=== PATIENT | female | born 1975 | race Caucasian/White ===

== ENCOUNTER 2021-08-12 16:23 | Observation (INO) ==
[2021-08-12 18:06] LABS: Basophils # (auto) 0.07 K/uL (0-0.2); Basophils % (auto) 0.7 %; Eosinophils # (auto) 0.63 K/uL (0-0.5); Eosinophils % (auto) 6.3 %; Hemoglobin 14.3 g/dL (12.0-16.0); Immature Granulocytes # (auto) 0.02 K/uL (0.00-0.02); Immature Granulocytes % (auto) 0.2 %; Lymphocytes # (auto) 2.62 K/uL (1.2-3.4); Lymphocytes % (auto) 26.1 %; Mean Corpuscular Hemoglobin 31.9 pg (25-34); Mean Corpuscular Volume 93.8 fL (80-100); Mean Platelet Volume 8.6 fL (7.4-10.4); Monocytes # (auto) 0.57 K/uL (0.11-0.59); Monocytes % (auto) 5.7 %; Neutrophils # (auto) 6.12 K/uL (1.4-6.5); Platelet Count 332 K/uL (130-400); RDW Coefficient of Variation 13.4 % (11.5-14.5); RDW Standard Deviation 46.1 fL (36.4-46.3); Red Blood Count 4.48 M/uL (4.2-5.4); White Blood Count 10.03 K/uL (4.8-10.8)
--- NOTE | 2021-08-12 18:19 | Emergency Department Note ---
History of Present Illness General Chief complaint: Neck Injury/Pain Stated complaint: NECK PAIN, PRETUSION IN THE FRONT AND SIDE, NERVE Time Seen by Provider: 08/12/21 18:11 History of Present Illness Maximum Pain Intensity: 8 This is a 45-year-old female that presents to the emergency department via private vehicle accompanied by her father with complaints of "neck/right arm pain". The patient notes that she has been experiencing right greater than left cervical radiculopathy at the C5/C6 level for the past several months. She has been scheduled to have surgery to repair this by Dr. Gilbert but unfortunately secondary to Covid prevalence in the area,, this has been canceled twice. The patient notes weakness right greater than left ongoing for the past several months in her upper extremity secondary to this neck finding. Patient rates her current pain is a 10/10. At home medications are not helping with her pain. She is taking gabapentin, ibuprofen, Excedrin and hydrocodone without relief. Patient cannot sleep secondary to the pain. Her ADLs are significantly inhib ited secondary to the pain. Patient denies any fevers, chills, chest pain or shortness of breath. No headache. Home Medications Medication Instructions Recorded Confirmed Type tqgqbuw-nrmpufhocilyo-zlujbxxl 250 1 tab PO Q6H PRN 07/05/21 08/12/21 History mg-250 mg-65 mg tablet (Excedrin Migraine) gabapentin 100 mg capsule 100 mg PO TID 07/05/21 08/12/21 History ibuprofen 800 mg tablet 800 mg PO Q8H PRN 07/05/21 08/12/21 History levothyroxine 50 mcg tablet 50 mcg PO QAM 07/05/21 08/12/21 History (Synthroid) hydrocodone 5 mg-acetaminophen 325 1 tab PO QPM 08/12/21 08/12/21 History mg tablet Allergies Allergy/AdvReac Type Severity Reaction Status Date / Time No Known Allergies Allergy Verified 07/05/21 14:17 Past Med/Surg History Medical History History of anemia 5 yrs ago due to fibroid tumor, resolved with removal. History of COVID-13 JULY 2020 (NO CURRENT PROBLEMS) History of depression Hypothyroidism Lumbar herniated disc Protruded cervical disc Surgical History H/O toe surgery A CHILD History of section X 3 History of colonoscopy Hx of myomectomy [place] teeth removed Family History Other No family history of adverse response to anesthesia Social History Smoking Status: Current every day smoker Tobacco Type: Cigarettes Cigarettes Per Day: 20 CIG DAILY; Second Hand Exposure: No; Do You Dip or Chew Tobacco: No; Tobacco Cessation Education Requested by Patient: No Hx Alcohol Use: No Hx Substance Use: Yes Preferred Language: Iranian Communication Ability: Effective Senior Managing Director Required: No Beliefs That Will Affect Care: None Current Living Situation: Spouse and Family Other Information That Helps Us Care for You: No Feels Safe at Home: Yes Safety Concerns: Feels Safe At This Time Assistive Devices: None Review of Systems A total of 10 systems reviewed and were otherwise negative Physical Exam Vital Signs Vital Signs - 24 hr 08/12/21 16:47 08/12/21 18:30 Temperature 36.4 C L Temperature Source Temporal Artery Scan Pulse Rate 100 H Pulse Rate [Finger] 86 Pulse Rhythm Regular Pulse Strength Normal Respiratory Rate 18 16 Respiratory Effort / Characteristics Non-Labored Spontaneous Non-Labored Respiratory Depth Normal Normal Respiratory Pattern Regular Blood Pressure 132/82 Blood Pressure [Left Arm] 109/69 Blood Pressure Mean 98 Blood Pressure Mean [Left Arm] 82 Blood Pressure Position Sitting Pulse Oximetry 98 99 Oxygen Delivery Method Room Air Room Air Sepsis Recent Fever Within 48 Hours No Sepsis New/Unexplained Change in Mental Status No Sepsis Action Taken by Nursing No Action Required VITAL SIGNS - Vital signs and nursing notes were reviewed. Stable and afebrile. GENERAL - 45-year-old female appearing her stated age who is in no acute distress but is tearful and appears to be in pain. Patient wearing a cervical soft collar. Communicates well with provider and answers questions appropriately. SKIN - Without rashes. HEAD - NC/AT. EYES - PERRL with EOMI bilaterally. Sclera anicteric. EARS - No deformities of external structures noted on gross examination bilaterally. NOSE - Midline and without cyanosis. No epistaxis or purulent drainage noted. MOUTH/OROPHARYNX - Without perioral cyanosis. Buccal mucosa pink and moist and without leukoplakia. Tongue midline with equal elevation of palate bilaterally. No tonsillar hypertrophy, erythema, or exudates noted. Good dentition noted. NECK - Neck with decreased range of motion secondary to pain. No nuchal rigidity. LUNGS - Chest wall symmetric without accessory muscle use, intercostals retractions, or central cyanosis. Normal vesicular breath sounds CTA B/L. No wheezes, rales, or rhonchi appreciated. CARDIAC - RRR with S1/S2. No murmur, rubs, or gallops appreciated. EXTREMITIES - No clubbing or peripheral cyanosis. No pretibial edema present. Decreased chemistry intern strength in the upper extremities bilaterally. NEUROLOGIC - Cranial nerves II through XII grossly intact. PSYCH - A&Ox3 and cooperates fully with examiner. Pt is very pleasant and interacts well with examiner. Course Administered Medications Gabapentin (Gabapentin 100 Mg Cap) 100 mg PO BID SYED Stop: 09/11/21 22:22 Last Admin: 08/12/21 23:39 Dose: 100 mg Documented by: [id number] Hydromorphone HCl (Hydromorphone Inj 1 Mg/Ml Syringe) 1 mg IV Q3H PRN PRN Reason: severe pain (scale 7-10) Stop: 08/26/21 22:22 Last Admin: 08/12/21 22:45 Dose: 1 mg Documented by: [id number] Lactated Ringer's (Lr) 1,000 mls @ 100 mls/hr IV .Q10H SYED Stop: 09/11/21 22:22 Last Admin: 08/13/21 00:15 Dose: 100 mls/hr Documented by: [id number] Melatonin (Melatonin 3 Mg Tab) 3 mg PO HS PRN PRN Reason: Sleep Stop: 09/11/21 23:42 Last Admin: 08/13/21 00:15 Dose: 3 mg Documented by: [id number] Miscellaneous (Order Awaiting Action) 1 ea N/A QS SYED Stop: 09/12/21 00:00 Last Admin: 08/13/21 00:34 Dose: Not Given Documented by: [id number] Discontinued Medications Morphine Sulfate (Morphine Sulfate 4 Mg/Ml 1 Ml Carp\\Vial) 4 mg IV NOW STA Stop: 08/12/21 18:27 Last Admin: 08/12/21 18:31 Dose: 4 mg Documented by: [id number] Ondansetron HCl (Ondansetron Inj 2 Mg/Ml 2 Ml Vial) 4 mg IV NOW STA Stop: 08/12/21 18:27 Last Admin: 08/12/21 18:31 Dose: 4 mg Documented by: [id number] Medical Decision Making Laboratory Data Result diagrams: 08/12/21 17:49 08/12/21 17:49 Lab Results 08/12/21 08/12/21 Range/Units 17:49 17:49 WBC 10.03 (4.8-10.8) K/uL RBC 4.48 (4.2-5.4) M/uL Hgb 14.3 (12.0-16.0) g/dL Hct 42.0 (37-47) % MCV 93.8 (80-100) fL MCH 31.9 (25-34) pg MCHC 34.0 (32-36) g/dL RDW Std Deviation 46.1 (36.4-46.3) fL RDW Coeff of Tuyet 13.4 (11.5-14.5) % Plt Count 332 (130-400) K/uL MPV 8.6 (7.4-10.4) fL Immature Gran % (Auto) 0.2 % Neut % (Auto) 61.0 % Lymph % (Auto) 26.1 % [place] % (Auto) 5.7 % Eos % (Auto) 6.3 % Baso % (Auto) 0.7 % Neut # (Auto) 6.12 (1.4-6.5) K/uL Lymph # (Auto) 2.62 (1.2-3.4) K/uL [place] # (Auto) 0.57 (0.11-0.59) K/uL Eos # (Auto) 0.63 H (0-0.5) K/uL Baso # (Auto) 0.07 (0-0.2) K/uL Immature Gran # (Auto) 0.02 (0.00-0.02) K/uL Sodium 141 (136-145) mmol/L Potassium 4.3 (3.5-5.1) mmol/L Chloride 108 H (98-107) mmol/L Carbon Dioxide 31 (21-32) mmol/L Anion Gap 2.0 L (3-11) BUN 12 (7-18) mg/dl Creatinine 0.74 (0.6-1.2) mg/dl Est Cr Clr Drug Dosing 78.0 ml/min Est GFR ( Amer) 111.8 ml/min Est GFR (Non-Af Amer) 96.5 ml/min BUN/Creatinine Ratio 16.7 (10-20) Glucose 96 (70-99) mg/dl Calcium 9.0 (8.5-10.1) mg/dl Total Bilirubin 0.3 (0.2-1) mg/dl AST 23 (15-37) U/L ALT 36 (12-78) U/L Alkaline Phosphatase 70 (45-117) U/L Total Protein 7.2 (6.4-8.2) gm/dl Albumin 3.8 (3.4-5.0) gm/dl Globulin 3.4 (2.5-4.0) gm/dl Albumin/Globulin Ratio 1.1 (0.9-2) MDM Narrative Patient was seen and evaluated as above in room D06. Review was performed of triage nursing notes and vital signs. After obtaining a thorough history and physical examination the above work up was performed. Patient presents to us today with ongoing cervical radiculopathy over the past several months. She was scheduled for surgery however this has been canceled twice secondary to COVID-19 prevalence in the area. Her vital signs are stable but she does appear to be in a great deal of pain on examination. She has had trouble with ADLs at home secondary to ongoing pain and numbness/tingling in the upper extremities. She follows with Dr. Gilbert of spine. No signs of infection clinically. Options of care were discussed with the patient. IV access was established. Labs were drawn. I called Dr. Gilbert regarding this. He will admit the patient for further evaluation and management. This is felt to be reasonable noting her intractable pain despite several medications at home. Please refer to further documentation regarding her stay. Labs reveal no leukocytosis or concerning anemia. No emergent metabolic disturbance. Urinalysis negative. GCS: 15 In the evaluation and treatment of this patient, the following differential diagnoses were considered: Musculoskeletal Strain, Discitis, Cervical Spine Fracture, Cervical Spine Dislocation, Cervical Spine Subluxation, Cervical Spondylosis, Fibromyalgia, Osteoarthritis, Polymyalgia Rheumatica, Psychogenic Pain Disorder, Tumor of Soft Tissue or Spine, among others. Impression & Plan Cervical radiculopathy Discharge Plan Visit Data Chief Complaint: Neck Injury/Pain Stated Complaint: NECK PAIN, PRETUSION IN THE FRONT AND SIDE, NERVE ED Provider: Geraldo Irving ED Midlevel Provider: Diomedes Pollock Discharge Problem: Cervical radiculopathy Patient Disposition: Admitted As Inpatient Condition: Good Discharge Instructions Interventions: ED Discharge Assessment Last Done: 08/12/21 22:00
[2021-08-12] MEDS ORDERED: MoRPHine SULFATE 4 MG/ML 1 ML CARP\\VIAL IV STA (18:26)
[2021-08-12] MEDS ORDERED: ONDANSETRON INJ 2 MG/ML 2 ML VIAL IV STA (18:26)
[2021-08-12 18:32] LABS: Albumin Level 3.8 gm/dl (3.4-5.0); BUN Creatinine Ratio 16.7 (10-20); Est GFR (African American) 111.8 ml/min; Est GFR (Non-African American) 96.5 ml/min; Potassium 4.3 mmol/L (3.5-5.1)
[2021-08-12 18:35] LABS: Albumin Globulin Ratio 1.1 (0.9-2); Bilirubin,Total 0.3 mg/dl (0.2-1); Globulin 3.4 gm/dl (2.5-4.0); Total Protein 7.2 gm/dl (6.4-8.2)
[2021-08-12] MEDS ORDERED: diphenhydrAMINE Capsule 25 MG CAP PO PRN (22:23)
[2021-08-12] MEDS ORDERED: ACETAMINOPHEN 1,000 MG/100 ML VIAL IV PRN (22:23)
[2021-08-12] MEDS ORDERED: ACETAMINOPHEN 500 MG TAB PO PRN (22:23)
[2021-08-12] MEDS ORDERED: traMADol HCL 50 MG TABLET PO PRN (22:23)
[2021-08-12] MEDS ORDERED: ONDANSETRON INJ 2 MG/ML 2 ML VIAL IV PRN (22:23)
[2021-08-12] MEDS ORDERED: PROMETHAZINE HCL 12.5 MG in SODIUM CHLORIDE 0.9% 50 ML IV PRN (22:23)
[2021-08-12] MEDS ORDERED: LORazepam 0.5 MG/1 ML VIAL IV PRN (22:23)
[2021-08-12] MEDS ORDERED: NALOXONE HCL 0.4 MG/1 ML VIAL/CARP IV PRN (22:23)
[2021-08-12] MEDS ORDERED: HYDROmorphone INJ 0.5 MG/0.5 ML SYR IV PRN (22:23)
[2021-08-12] MEDS ORDERED: hydrOXYzine HCl 25 MG TAB PO PRN (22:23)
[2021-08-12] MEDS ORDERED: ONDANSETRON 4 MG OD TAB PO PRN (22:23)
[2021-08-12] MEDS ORDERED: GABAPENTIN 100 MG CAP PO SCH (22:23)
[2021-08-12] MEDS ORDERED: METOCLOPRAMIDE HCL INJ 5 MG/ML 2 ML VIAL IV PRN (22:23)
[2021-08-12] MEDS ORDERED: MAGNESIUM HYDROXIDE SUSP 30 ML UDC PO PRN (22:23)
[2021-08-12] MEDS ORDERED: ALUMINUM/MAGNESIUM SUSP 30 ML UDC PO PRN (22:23)
[2021-08-12] MEDS ORDERED: LORazepam 0.5 MG TAB PO PRN (22:23)
[2021-08-12] MEDS: HYDROmorphone INJ 1 MG/ML SYRINGE IV PRN (22:45)
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
[2021-08-12] MEDS ORDERED: MELATONIN 3 MG TAB PO PRN (23:43)
[2021-08-13 00:08] LABS: Appearance Urine Clear (Clear); Bacteria Urine Automated Negative (Negative); Bilirubin Urine Negative (Negative); Blood Urine Trace (Negative); Cast Urine Automated 0 /lpf (0-5); Color Urine Yellow; Epithelial Cell Urine Auto >30 /lpf (0-5); Glucose Urine UA Negative (Negative); Ketones Urine Negative (Negative); Leukocyte Esterase Urine Negative (Negative); Nitrite Urine Negative (Negative); Protein Urine Negative (Negative); RBC Urine Automated 0-4 /hpf (0-4); Specific Gravity Urine 1.014 (1.000-1.030); Urobilinogen Urine Negative (Negative)
[2021-08-13] MEDS: LACTATED RINGER'S 1,000 ML IV SCH ×4 (00:15→21:58)
[2021-08-13 01:10] LABS: Pregnancy Test, Urine Negative (Negative)
[2021-08-13] MEDS: LEVOTHYROXINE SODIUM 50 MCG TABLET PO SCH (05:08)
[2021-08-13] MEDS: oxyCODONE HCL IR 5 MG TAB (IMMEDIATE RELEASE) PO PRN ×4 (05:46→23:26)
[2021-08-13] MEDS ORDERED: ceFAZolin 2000MG 2,000 MG/15 ML SYR IV SCH (06:00)
[2021-08-13] MEDS ORDERED: GABAPENTIN 100 MG CAP PO SCH ×2 (06:15→21:00)
--- NOTE | 2021-08-13 08:35 | Anesthesiology Consultation ---
Date of Service August 13, 2021 Assessment & Plan (1) Encounter for pre-operative examination: Chart Review Chart Review: Acceptable Risk for Surgery and Patient NOT seen in Pre Admission Testing Consults Requested none History Surgery Operation Date: 08/13/21 07:00 Proposed Procedures p C5-C6 Anterior Cervical Discectomy Fusion, Spinal Cord Monitoring - Drew Gilbert DO Height/Weight Height: 4 ft 11.75 in Weight: 64.1 kg Allergies Allergy/AdvReac Type Severity Reaction Status Date / Time No Known Allergies Allergy Verified 07/05/21 14:17 Medications Home Medications Medication Instructions Recorded Confirmed Last Taken dyryblv-dycydcoferxrn-yefxurna 250 1 tab PO Q6H PRN 07/05/21 08/12/21 Unknown mg-250 mg-65 mg tablet (Excedrin Migraine) gabapentin 100 mg capsule 100 mg PO TID 07/05/21 08/12/21 Unknown ibuprofen 800 mg tablet 800 mg PO Q8H PRN 07/05/21 08/12/21 Unknown levothyroxine 50 mcg tablet 50 mcg PO QAM 07/05/21 08/12/21 Unknown (Synthroid) hydrocodone 5 mg-acetaminophen 325 1 tab PO QPM 08/12/21 08/12/21 Unknown mg tablet Active Medications Generic Name Dose Route Start Last Admin Trade Name Freq PRN Reason Stop Dose Admin Gabapentin 100 mg 08/13/21 06:15 08/13/21 06:16 Gabapentin 100 Mg Cap PO 09/12/21 06:14 100 mg BID@0600,1800 SYED Administration Hydromorphone HCl 1 mg 08/12/21 22:23 08/12/21 22:45 Hydromorphone Inj 1 Mg/Ml Syringe IV 08/26/21 22:22 1 mg Q3H PRN Administration severe pain (scale 7-10) Lactated Ringer's 1,000 mls @ 100 mls/hr 08/12/21 22:23 08/13/21 00:15 Lr IV 09/11/21 22:22 100 mls/hr .Q10H SYED Administration Levothyroxine Sodium 50 mcg 08/13/21 06:30 08/13/21 05:08 Levothyroxine Sodium 50 Mcg Tablet PO 09/12/21 06:29 50 mcg DAILYBB SYED Administration Melatonin 3 mg 08/12/21 23:43 08/13/21 00:15 Melatonin 3 Mg Tab PO 09/11/21 23:42 3 mg HS PRN Administration Sleep Miscellaneous 1 ea 08/13/21 00:00 08/13/21 00:34 Order Awaiting Action N/A 09/12/21 00:00 Not Given QS SYED Oxycodone HCl 5 - 10 mg 08/12/21 22:23 08/13/21 05:46 Oxycodone Hcl Ir 5 Mg Tab (Immediate Release) PO 08/26/21 22:22 10 mg Q4H PRN Administration mod to severe pain Past Medical History Medical History History of anemia 5 yrs ago due to fibroid tumor, resolved with removal. History of COVID-13 JULY 2020 (NO CURRENT PROBLEMS) History of depression Hypothyroidism Lumbar herniated disc Protruded cervical disc Past Family History Family History Other No family history of adverse response to anesthesia Past Surgical History Surgical History H/O toe surgery A CHILD History of section X 3 History of colonoscopy Hx of myomectomy [place] teeth removed Past Anesthesia History Other (history of awareness as a child) Social History Smoking Status: Current every day smoker tobacco type: cigarettes Smoking cigarettes per day: 20 CIG DAILY Do You Dip or Chew Tobacco: No Hx Alcohol Use: No Hx Substance Use: Yes substance use type: prescription drug Physical Exam Vital Signs Last Vital Signs Temp 36.8 C 08/13/21 07:21 Pulse 62 08/13/21 08:27 Resp 16 08/13/21 07:21 BP 101/68 08/13/21 08:31 Pulse Ox 97 08/13/21 07:21 Testing Laboratory Results 08/12/21 17:49 08/12/21 17:49 Urine Color Yellow 08/12/21 23:50 Urine Appearance Clear (Clear) 08/12/21 23:50 Urine pH 5.0 (4.5-7.5) 08/12/21 23:50 Ur Specific [place] 1.014 (1.000-1.030) 08/12/21 23:50 Urine Protein Negative (Negative) 08/12/21 23:50 Urine Glucose (UA) Negative (Negative) 08/12/21 23:50 Urine Ketones Negative (Negative) 08/12/21 23:50 Urine Nitrite Negative (Negative) 08/12/21 23:50 Ur Leukocyte Esterase Negative (Negative) 08/12/21 23:50 Urine WBC (Auto) 1-5 /hpf (0-5) 08/12/21 23:50 Urine RBC (Auto) 0-4 /hpf (0-4) 08/12/21 23:50 U Hyaline Cast (Auto) 0 /lpf (0-5) 08/12/21 23:50 U Epithel Cells (Auto) >30 /lpf (0-5) H 08/12/21 23:50 Urine Bacteria (Auto) Negative (Negative) 08/12/21 23:50 Urine Test Negative (Negative) 08/12/21 23:50 08/12/21 08/12/21 23:50 23:50 Urine Test Negative POC Ur Test Pending
--- NOTE | 2021-08-13 08:39 | History & Physical Report ---
Date of Service August 13, 2021 Assessment & Plan (1) Cervical radiculopathy: Plan: Assessment hernia nucleus pulposus C5-C6 with radiculopathy. Plan at this time patient has an MRI with evidence of a massive discrimination C5-C6 on the right consistent with her clinical presentation. In light of her progressive neuro deficit we are recommending anterior cervical discectomy and fusion to C5-C6. Risk benefits pros cons alternatives were outlined in detail. Admission and Anticipated Discharge Date Admission Date: August 12, 2021 History of Present Illness Chief Complaint: Neck and right arm pain with weakness Primary Care Provider: Alfonso Leary DO This is a 45-year-old female presents with severe neck and arm pain. Is been progressive over the past several weeks. She notes significant weakness with inability to undergo activities of daily living. She is found extensive course of nonoperative care left upper extremity is relatively asymptomatic. Allergies Allergy/AdvReac Type Severity Reaction Status Date / Time No Known Allergies Allergy Verified 07/05/21 14:17 Home Medications Medication Instructions Recorded Confirmed Type yceyvbt-jnyjwgwquqbhg-yiuofhwa 250 1 tab PO Q6H PRN 07/05/21 08/12/21 History mg-250 mg-65 mg tablet (Excedrin Migraine) gabapentin 100 mg capsule 100 mg PO TID 07/05/21 08/12/21 History ibuprofen 800 mg tablet 800 mg PO Q8H PRN 07/05/21 08/12/21 History levothyroxine 50 mcg tablet 50 mcg PO QAM 07/05/21 08/12/21 History (Synthroid) hydrocodone 5 mg-acetaminophen 325 1 tab PO QPM 08/12/21 08/12/21 History mg tablet Past Med/Surg History Medical History History of anemia 5 yrs ago due to fibroid tumor, resolved with removal. History of COVID-13 JULY 2020 (NO CURRENT PROBLEMS) History of depression Hypothyroidism Lumbar herniated disc Protruded cervical disc Surgical History H/O toe surgery A CHILD History of section X 3 History of colonoscopy Hx of myomectomy [place] teeth removed Family History Other No family history of adverse response to anesthesia Social History Smoking Status: Current every day smoker Tobacco Type: Cigarettes Cigarettes Per Day: 20 CIG DAILY; Second Hand Exposure: No; Do You Dip or Chew Tobacco: No; Tobacco Cessation Education Requested by Patient: No Hx Alcohol Use: No Hx Substance Use: Yes Preferred Language: Icelandic Communication Ability: Effective Box Puller Required: No Beliefs That Will Affect Care: None Current Living Situation: Spouse and Family Other Information That Helps Us Care for You: No Feels Safe at Home: Yes Safety Concerns: Feels Safe At This Time Assistive Devices: None Physical Exam Physical Exam: On exam she is in obvious distress. She exhibits marked weakness 3+/5 right biceps compared to 5 5 on the left. There are sensory deficits. She has a markedly positive [place] sign to the right. Results & Data ([facility]) Vital Signs (Past 12 Hours) Vital Signs Temp Pulse Resp BP BP Pulse Ox 08/13/21 08:31 101/68 08/13/21 08:27 62 08/13/21 07:21 36.8 C 66 16 93/63 L 97 08/12/21 22:10 37.1 C 67 16 104/69 100 08/12/21 22:06 75 18 110/77 99 08/12/21 21:00 70 17 121/74 98 Code Status & VTE Plan VTE Prophylaxis Plan VTE Prophylaxis will be ordered: Yes
[2021-08-13] MEDS ORDERED: PROMETHAZINE HCL 12.5 MG in SODIUM CHLORIDE 0.9% 50 ML IV PRN ×2 (10:19→12:47)
[2021-08-13] MEDS ORDERED: HYDROmorphone INJ 2 MG/ML SYR/VIAL IV PRN (10:19)
[2021-08-13] MEDS ORDERED: ATROPINE SULFATE 0.1 MG/ML 10ML SYR IV PRN (10:19)
[2021-08-13] MEDS ORDERED: ONDANSETRON INJ 2 MG/ML 2 ML VIAL IV PRN ×2 (10:19→12:47)
[2021-08-13] MEDS ORDERED: ePHEDrine sulfate 50 MG/ML AMP IV PRN (10:19)
[2021-08-13] MEDS ORDERED: FLOSEAL HEMOSTATIC MATRIX 10ML TOP ONE (10:53)
--- NOTE | 2021-08-13 11:06 | Operative Report ---
Post Operative Report Pre & Post Diagnosis Operation Date: 08/13/21 07:00 Pre-Op Diagnosis: Cervical Radiculopathy Post-Op Diagnosis: Cervical Radiculopathy I identified the patient and participated in the time-out.: Yes Procedure Operation Date: 08/13/21 07:00 Actual Procedures #1 anterior cervical discectomy with bilateral foraminotomies C5-C6. #2 intr acervical arthrodesis C5-C6. #3 placement of globus 7 mm coalition cage filled with I factor C5-C6. Surgeon Drew Gilbert, Motor Vehicle Emissions Inspector None Estimated Blood Loss 10 Findings Consistent with Post-Op Diagnosis Specimens None Indications This is a 45-year-old female presents with vomiting diagnosis after failing course of nonoperative care is here for surgical invention. Description of Procedure Patient met with identified informed consent obtained. Patient was then taken to the operative suite underwent a patient placed in the supine position Vinh table with the head Duarte headrig sawyer. All bony prominences well-padded eyes inspected to ensure no external pressure placed upon the. This point the anterior cervical spine was prepped and draped in a sterile fashion. The assistance of fluoroscopy the C5-C6 disc space was identified. A transverse incision was placed along the right anterior aspect of the cervical spinal lines region. Blunt dissection with the assistance of bipolar cautery performed down to expose the anterior supraspinatus level. Self-retaining retractors placed. Then performed a complete discectomy of C5-C6 out to the uncovertebral's bilaterally. [place] distracting pins utilized to assist in visualization. I removed all posterior annular fibers longitudinal ligament massive amounts of disc material were identified in the right neural foramen. The removed in their entirety. The endplates were then burred to subcortical being bone and a 7 mm coalition cage was tapped into position and screwed into place. Was filled with I factor. Incision was then copiously irrigated explored to ensure no damage to surrounding structures remaining bleeding. 10 round ELEANOR drain inserted. Incision was then closed with 2 Vicryl to fascia 4 Monocryl for final skin closure. Steri-Strip sterile dressings placed. Patient waken taken PACU stable condition. Please note spinal cord monitoring was utilized at the procedure no changes noted. I attest to the content of the Intraoperative Record and any orders documented therein. Any exceptions are noted below.
--- NOTE | 2021-08-13 11:27 | Fluoroscopy Report ---
FL cervical 2-3V CLINICAL HISTORY: C5-6 ACDF TECHNIQUE: 3 views were obtained with the C-arm in the OR with the above procedure. Total fluoroscopy time was 9.9 seconds. Total skin dose was 0.82 mGy. Comparison: None available at the time of this dictation. FINDINGS/IMPRESSION: Multiple intraoperative images of ACDF placement were obtained. Please correlate with intraoperative fluoroscopy and operative report. ACT 112: Negative or not required by law. Electronically signed by: Josh Kirk M.D. 08/13/2021 11:26 AM
--- NOTE | 2021-08-13 11:55 | Anesthesiology Progress Note ---
Date of Service August 13, 2021 Anesthesia Post Procedure Vital Signs Vital Signs: Temp Pulse Pulse Pulse Resp BP BP 08/13/21 11:50 57 L 13 08/13/21 11:40 57 L 13 08/13/21 11:30 56 L 14 08/13/21 11:20 36.3 C L 74 14 08/13/21 09:22 36.9 C 55 L 18 08/13/21 08:31 08/13/21 08:27 62 08/13/21 07:21 36.8 C 66 16 93/63 L 08/12/21 22:10 37.1 C 67 16 104/69 08/12/21 22:06 75 18 110/77 08/12/21 21:00 70 17 121/74 08/12/21 18:30 86 16 109/69 08/12/21 16:47 36.4 C L 100 H 18 132/82 BP Pulse Ox 08/13/21 11:50 102/65 98 08/13/21 11:40 103/69 100 08/13/21 11:30 106/64 100 08/13/21 11:20 109/60 99 08/13/21 09:22 101/53 L 18 L 08/13/21 08:31 101/68 08/13/21 08:27 08/13/21 07:21 97 08/12/21 22:10 100 08/12/21 22:06 99 08/12/21 21:00 98 08/12/21 18:30 99 08/12/21 16:47 98 Pain Intensity Neck: Pain Intensity: 2 Right Arm: Pain Intensity: 10 Transfer of Care Handoff Completed per policy Notes Mental Status: alert / awake / arousable and participated in evaluation Patient Amnestic to Procedure: Yes Nausea / Vomiting: adequately controlled Pain: adequately controlled Airway Patency, RR, SpO2: stable & adequate BP & HR: stable & adequate Hydration State: stable & adequate Anesthetic Complications: no major complications apparent and Pt Satisfied with anesthetic care
[2021-08-13] MEDS: fentaNYL citrate 100 MCG/2 ML VIAL IV PRN ×2 (12:06→12:11)
[2021-08-13] MEDS ORDERED: LORazepam 0.5 MG TAB PO PRN (12:47)
[2021-08-13] MEDS ORDERED: ACETAMINOPHEN 500 MG TAB PO PRN (12:47)
[2021-08-13] MEDS ORDERED: bisacodyL 10 MG SUPP PR PRN (12:47)
[2021-08-13] MEDS ORDERED: NALOXONE HCL 0.4 MG/1 ML VIAL/CARP IV PRN (12:47)
[2021-08-13] MEDS ORDERED: ALUMINUM/MAGNESIUM SUSP 30 ML UDC PO PRN (12:47)
[2021-08-13] MEDS ORDERED: diphenhydrAMINE Capsule 25 MG CAP PO PRN (12:47)
[2021-08-13] MEDS ORDERED: DO NOT ADMINISTER PNEUMOCOCCAL VACCINE PRN (12:47)
[2021-08-13] MEDS ORDERED: MAGNESIUM HYDROXIDE SUSP 30 ML UDC PO PRN (12:47)
[2021-08-13] MEDS ORDERED: SOD PHOSPHATE/SOD BIPHOSPHATE ENEMA 132 ML BTL PR PRN (12:47)
[2021-08-13] MEDS ORDERED: LORazepam 0.5 MG/1 ML VIAL IV PRN (12:47)
[2021-08-13] MEDS ORDERED: FAMOTIDINE 20 MG TAB PO PRN (12:47)
[2021-08-13] MEDS ORDERED: hydrOXYzine HCl 25 MG TAB PO PRN (12:47)
[2021-08-13] MEDS ORDERED: ACETAMINOPHEN 1,000 MG/100 ML VIAL IV PRN (12:47)
[2021-08-13] MEDS ORDERED: ONDANSETRON 4 MG OD TAB PO PRN (12:47)
[2021-08-13] MEDS ORDERED: RACEPINEPHRINE 2.25% NEBU SOLN 0.5 ML VIAL INH PRN (12:47)
[2021-08-13] MEDS ORDERED: METOCLOPRAMIDE HCL INJ 5 MG/ML 2 ML VIAL IV PRN (12:47)
[2021-08-13] MEDS ORDERED: dexAMETHasone 8 MG in SYRINGE 0 ML IV PRN (12:47)
[2021-08-13] MEDS ORDERED: DO NOT ADMINISTER FLU VACCINE PRN (12:47)
[2021-08-13] MEDS ORDERED: fentaNYL citrate 100 MCG/2 ML VIAL IV ONE (13:13)
[2021-08-13] MEDS ORDERED: LIDOCAINE 2% 2 ML VIAL/AMP(20MG/ML) INFIL ONE (13:13)
[2021-08-13] MEDS ORDERED: SUCCINYLCHOLINE CHLORIDE 20 MG/ML 10 ML VIAL IV ONE (13:13)
[2021-08-13] MEDS ORDERED: DEXAMETHASONE SOD INJ 4 MG/ML VIAL IV ONE (13:13)
[2021-08-13] MEDS ORDERED: MIDAZOLAM HCL 1 MG/ML 2ML VIAL IV ONE (13:13)
[2021-08-13] MEDS ORDERED: NEOSTIGMINE METHYLSULFATE 1 MG/ML 10ML VIAL IM ONE (13:13)
[2021-08-13] MEDS ORDERED: ONDANSETRON INJ 2 MG/ML 2 ML VIAL IV ONE (13:13)
[2021-08-13] MEDS ORDERED: PROPOFOL IV EMULSION 10 MG/ML 20 ML VIAL IV ONE (13:13)
[2021-08-13] MEDS ORDERED: MELATONIN 3 MG TAB PO ONE (13:13)
[2021-08-13] MEDS ORDERED: GLYCOPYRROLATE 0.2 MG/ML VIAL IM ONE (13:13)
[2021-08-13] MEDS ORDERED: HYDROmorphone INJ 2 MG/ML SYR/VIAL IV ONE (13:13)
--- NOTE | 2021-08-13 13:52 | Anesthesiology Progress Note ---
Date of Service August 13, 2021 Anesthesia Post Procedure Vital Signs Vital Signs: Temp Pulse Pulse Pulse Resp BP BP 08/13/21 13:30 36.6 C 60 17 08/13/21 13:20 36.6 C 65 17 08/13/21 12:49 36.3 C L 60 18 08/13/21 12:30 36.2 C L 60 13 08/13/21 12:10 60 13 08/13/21 12:00 79 17 08/13/21 11:50 57 L 13 08/13/21 11:40 57 L 13 08/13/21 11:30 56 L 14 08/13/21 11:20 36.3 C L 74 14 08/13/21 09:22 36.9 C 55 L 18 08/13/21 08:31 08/13/21 08:27 62 08/13/21 07:21 36.8 C 66 16 93/63 L 08/12/21 22:10 37.1 C 67 16 104/69 08/12/21 22:06 75 18 110/77 08/12/21 21:00 70 17 121/74 08/12/21 18:30 86 16 109/69 08/12/21 16:47 36.4 C L 100 H 18 132/82 BP Pulse Ox 08/13/21 13:30 108/65 100 08/13/21 13:20 104/69 100 08/13/21 12:49 93/65 L 100 08/13/21 12:30 95/57 L 97 08/13/21 12:10 101/66 94 08/13/21 12:00 106/64 100 08/13/21 11:50 102/65 98 08/13/21 11:40 103/69 100 08/13/21 11:30 106/64 100 08/13/21 11:20 109/60 99 08/13/21 09:22 101/53 L 18 L 08/13/21 08:31 101/68 08/13/21 08:27 08/13/21 07:21 97 08/12/21 22:10 100 08/12/21 22:06 99 08/12/21 21:00 98 08/12/21 18:30 99 08/12/21 16:47 98 Pain Intensity Neck: Pain Intensity: 4 Right Arm: Pain Intensity: 10 Transfer of Care Handoff Completed per policy Notes Mental Status: alert / awake / arousable and participated in evaluation Patient Amnestic to Procedure: Yes Nausea / Vomiting: adequately controlled Pain: adequately controlled Airway Patency, RR, SpO2: stable & adequate BP & HR: stable & adequate Hydration State: stable & adequate Anesthetic Complications: no major complications apparent and Pt Satisfied with anesthetic care
--- NOTE | 2021-08-13 14:34 | Hospitalist Progress Note ---
Date of Service August 13, 2021 Assessment & Plan (1) Post-operative state: Plan: POD#0 s/p cervical surgery pain management wound management drain management and dispo per Ortho spine She is doing well overlal tonight, not having breathing issues or stridor and to lerating PO (2) Cervical radiculopathy: Plan: Cont home gabapentin, retimed for her home schedule. (3) Migraine: Plan: not present currently, home meds PRN (4) Smoker: Plan: Nicoderm patch PRN (5) Hypothyroidism: Plan: TSH within normal limits. Cont Synthroid at current dose. (6) DVT prophylaxis: Plan: SCDs/ambulation Full Dispo-to home when cleared by Ortho DO Keyur Blankenship Hospitalist Admission and Anticipated Discharge Date Admission Date: August 12, 2021 Subjective 45-year-old female status post cervical surgery Reports pain is a 4 out of 10, as expected Denies any breathing or wheezing Tolerating p.o. Some soreness in her lower chest area anteriorly Smoker considering the NicoDerm patch Specified her gabapentin times which was updated. Review of Systems Review of Systems: All systems reviewed and negative except as indicated above. Physical Exam Physical Exam: CONSTITUTIONAL: WNWD, vitals as above, generally well- appearing EYES: normal conjunctivae, no scleral icterus ENT: external ear and nose normal NECK: anterior neck dressing dry and intact, small drain leaving site. Wound not visualized. RESPIRATORY: clear to auscultation bilaterally, no crackles, rales or wheezes, normal respiratory effort CARDIOVASCULAR: regular rate and rhythm, S1 and 2 heard without murmurs, gallops or rubs, no JVD, no peripheral edema CHEST: inspection of chest was normal GASTROINTESTINAL: soft, nontender, ND, no guarding MUSCULOSKELETAL: strength 5/5 throughout, head is normocephalic and atraumatic SKIN: warm and dry NEUROLOGIC: CN 2-12 grossly intact, no sensory deficit, normal cognition, normal speech, no tremor PSYCHIATRIC: alert cooperative and oriented to person, place and time. Results & Data Results & Data ([facility]) Vital Signs (Past 12 Hours) Vital Signs Temp Pulse Pulse Resp BP BP Pulse Ox 08/13/21 13:45 36.8 C 63 17 115/74 100 08/13/21 13:30 36.6 C 60 17 108/65 100 08/13/21 13:20 36.6 C 65 17 104/69 100 08/13/21 12:49 36.3 C L 60 18 93/65 L 100 08/13/21 12:30 36.2 C L 60 13 95/57 L 97 08/13/21 12:10 60 13 101/66 94 08/13/21 12:00 79 17 106/64 100 08/13/21 11:50 57 L 13 102/65 98 08/13/21 11:40 57 L 13 103/69 100 08/13/21 11:30 56 L 14 106/64 100 08/13/21 11:20 36.3 C L 74 14 109/60 99 08/13/21 09:22 36.9 C 55 L 18 101/53 L 18 L 08/13/21 08:31 101/68 08/13/21 08:27 62 08/13/21 07:21 36.8 C 66 16 93/63 L 97 Laboratory Results Short CBC 08/12/21 Range/Units 17:49 WBC 10.03 (4.8-10.8) K/uL Hgb 14.3 (12.0-16.0) g/dL Hct 42.0 (37-47) % Plt Count 332 (130-400) K/uL BMP 08/12/21 17:49 Sodium 141 Potassium 4.3 Chloride 108 H Carbon Dioxide 31 BUN 12 Creatinine 0.74 Glucose 96 Calcium 9.0 Liver Function 08/12/21 Range/Units 17:49 Total Bilirubin 0.3 (0.2-1) mg/dl AST 23 (15-37) U/L ALT 36 (12-78) U/L Alkaline Phosphatase 70 (45-117) U/L Albumin 3.8 (3.4-5.0) gm/dl Urine 08/12/21 Range/Units 23:50 Urine Color Yellow Urine Appearance Clear (Clear) Urine pH 5.0 (4.5-7.5) Ur Specific [place] 1.014 (1.000-1.030) Urine Protein Negative (Negative) Urine Glucose (UA) Negative (Negative) Diagnostic Findings Cervical Spine X-Ray 08/13/21 00:00 FL cervical 2-3V CLINICAL HISTORY: C5-6 ACDF TECHNIQUE: 3 views were obtained with the C-arm in the OR with the above procedure. Total fluoroscopy time was 9.9 seconds. Total skin dose was 0.82 mGy. Comparison: None available at the time of this dictation. FINDINGS/IMPRESSION: Multiple intraoperative images of ACDF placement were obtained. Please correlate with intraoperative fluoroscopy and operative report. ACT 112: Negative or not required by law. Electronically signed by: Josh Kirk M.D. 08/13/2021 11:26 AM Medications Administered Current Inpatient Medications Acetaminophen (Acetaminophen 500 Mg Tab) 1,000 mg PO Q8H PRN PRN Reason: MILD Pain Scale 1,2,3 & Pre PT Stop: 09/11/21 22:22 Acetaminophen (Acetaminophen 500 Mg Tab) 1,000 mg PO Q8H PRN PRN Reason: MILD Pain Scale 1,2,3 & Pre PT Stop: 09/12/21 12:46 Al Hydrox/Mg Hydrox/Simethicone (Aluminum/Magnesium Susp 30 Ml Udc) 30 ml PO Q6H PRN PRN Reason: Dyspepsia Stop: 09/11/21 22:22 Al Hydrox/Mg Hydrox/Simethicone (Aluminum/Magnesium Susp 30 Ml Udc) 30 ml PO Q6H PRN PRN Reason: Dyspepsia Stop: 09/12/21 12:46 Atropine Sulfate (Atropine Sulfate 0.1 Mg/Ml 10ml Syr) 0.5 mg IV Q1M PRN PRN Reason: PACU Use-HR<40 &/or Bradycardi Stop: 08/13/21 18:19 Bisacodyl (Bisacodyl 10 Mg Supp) 10 mg IA DAILY PRN PRN Reason: Constipation Stop: 09/13/21 19:50 Bisacodyl (Bisacodyl 10 Mg Supp) 10 mg IA DAILY PRN PRN Reason: Constipation Stop: 09/12/21 12:46 Diphenhydramine HCl (Diphenhydramine Capsule 25 Mg Cap) 25 mg PO Q6H PRN PRN Reason: Allergic Rhinitis/Insomnia Stop: 09/11/21 22:22 Diphenhydramine HCl (Diphenhydramine Capsule 25 Mg Cap) 25 mg PO Q6H PRN PRN Reason: Allergic Rhinitis/Insomnia Stop: 09/12/21 12:46 Ephedrine Sulfate (Ephedrine Sulfate 50 Mg/Ml Amp) 5 mg IV Q5M PRN PRN Reason: PACU Use Only-SBP<90 mmHg Stop: 08/13/21 18:19 Epinephrine (Racepinephrine 2.25% Nebu Soln 0.5 Ml Vial) 0.5 ml INH NOW PRN PRN Reason: If stridor present Famotidine (Famotidine 20 Mg Tab) 20 mg PO Q12H PRN PRN Reason: Dyspepsia Stop: 09/12/21 12:46 Fentanyl Citrate (Fentanyl Citrate 100 Mcg/2 Ml Vial) 50 mcg IV Q5M PRN PRN Reason: PACU Use Only-Pain Stop: 08/13/21 18:19 Last Admin: 08/13/21 12:11 Dose: 50 mcg Documented by: Gabapentin (Gabapentin 100 Mg Cap) 100 mg PO ONE ONE Stop: 08/13/21 14:46 Gabapentin (Gabapentin 100 Mg Cap) 100 mg PO TID SYED Stop: 09/12/21 20:59 Hydromorphone HCl (Hydromorphone Inj 0.5 Mg/0.5 Ml Syr) 0.5 mg IV Q3H PRN PRN Reason: MOD pain (scale 4-6) & Pre PT Stop: 08/26/21 22:22 Last Admin: 08/13/21 14:09 Dose: 0.5 mg Documented by: Hydromorphone HCl (Hydromorphone Inj 1 Mg/Ml Syringe) 1 mg IV Q3H PRN PRN Reason: severe pain (scale 7-10) Stop: 08/26/21 22:22 Last Admin: 08/12/21 22:45 Dose: 1 mg Documented by: Hydromorphone HCl (Hydromorphone Inj 2 Mg/Ml Syr/Vial) 0.5 mg IV Q5M PRN PRN Reason: PACU Use Only-Pain Stop: 08/13/21 18:19 Hydroxyzine HCl (Hydroxyzine Hcl 25 Mg Tab) 25 mg PO Q8H PRN PRN Reason: Anxiety Stop: 09/11/21 22:22 Hydroxyzine HCl (Hydroxyzine Hcl 25 Mg Tab) 25 mg PO Q8H PRN PRN Reason: Anxiety Stop: 09/12/21 12:46 Cefazolin Sodium (Ancef 2000mg) 2,000 mg in 15 mls @ 3.75 mls/min IV PREOP SYED; Protocol Stop: 08/13/21 18:00 Last Admin: 08/13/21 09:44 Dose: 3.75 mls/min Documented by: Promethazine HCl 12.5 mg/ (Sodium Chloride) 50.5 mls @ 202 mls/hr IV Q6H PRN PRN Reason: Nausea &/or Vomiting Stop: 09/11/21 22:22 Acetaminophen (Ofirmev) 1,000 mg in 100 mls @ 400 mls/hr IV Q8H PRN PRN Reason: Pain Rating 1-3 & Pre PT Stop: 08/15/21 22:22 Lorazepam (Ativan) 0.5 mg in 1 mls @ 1 mls/min IV Q8H PRN PRN Reason: Sedation/Anxiety Stop: 09/11/21 22:22 Promethazine HCl 12.5 mg/ (Sodium Chloride) 50.5 mls @ 204 mls/hr IV ONCE PRN PRN Reason: PACU Use Only-Nausea/Vomiting Stop: 08/13/21 18:19 Dexamethasone 8 mg/ Syringe 2 mls @ 1 mls/min IV NOW PRN PRN Reason: If stridor present Lactated Ringer's (Lr) 1,000 mls @ 100 mls/hr IV .Q10H SYED Stop: 09/12/21 12:46 Last Admin: 08/13/21 13:15 Dose: 100 mls/hr Documented by: Promethazine HCl 12.5 mg/ (Sodium Chloride) 50.5 mls @ 202 mls/hr IV Q6H PRN PRN Reason: Nausea &/or Vomiting Stop: 09/12/21 12:46 Acetaminophen (Ofirmev) 1,000 mg in 100 mls @ 400 mls/hr IV Q8H PRN PRN Reason: Pain Rating 1-3 & Pre PT Stop: 08/16/21 12:46 Lorazepam (Ativan) 0.5 mg in 1 mls @ 1 mls/min IV Q8H PRN PRN Reason: Sedation/Anxiety Stop: 09/12/21 12:46 Cefazolin Sodium (Ancef 1000mg) 1,000 mg in 7.5 mls @ 2.5 mls/min IV Q8H SYED; Protocol Stop: 08/14/21 02:02 Dexamethasone 6 mg/ Syringe 1.5 mls @ 1 mls/min IV DAILY SYED Stop: 08/16/21 09:02 Influenza Virus Vaccine Quadrival (Do Not Administer Flu Vaccine) 1 ea N/A PRN PRN PRN Reason: Notification Stop: 09/12/21 12:46 Levothyroxine Sodium (Levothyroxine Sodium 50 Mcg Tablet) 50 mcg PO DAILYBB SYED Stop: 09/12/21 06:29 Last Admin: 08/13/21 05:08 Dose: 50 mcg Documented by: Lorazepam (Lorazepam 0.5 Mg Tab) 0.5 mg PO Q8H PRN PRN Reason: sedation/anxiety Stop: 09/11/21 22:22 Lorazepam (Lorazepam 0.5 Mg Tab) 0.5 mg PO Q8H PRN PRN Reason: Sedation/Anxiety Stop: 09/12/21 12:46 Magnesium Hydroxide (Magnesium Hydroxide Susp 30 Ml Udc) 30 ml PO Q24H PRN PRN Reason: Constipation Stop: 09/11/21 22:22 Magnesium Hydroxide (Magnesium Hydroxide Susp 30 Ml Udc) 30 ml PO Q24H PRN PRN Reason: Constipation Stop: 09/12/21 12:46 Melatonin (Melatonin 3 Mg Tab) 3 mg PO HS PRN PRN Reason: Sleep Stop: 09/11/21 23:42 Last Admin: 08/13/21 00:15 Dose: 3 mg Documented by: Metoclopramide HCl (Metoclopramide Hcl Inj 5 Mg/Ml 2 Ml Vial) 10 mg IV Q6H PRN PRN Reason: Nausea &/or Vomiting Stop: 09/11/21 22:22 Metoclopramide HCl (Metoclopramide Hcl Inj 5 Mg/Ml 2 Ml Vial) 10 mg IV Q6H PRN PRN Reason: Nausea &/or Vomiting Stop: 09/12/21 12:46 Miscellaneous (Order Awaiting Action) 1 ea N/A QS SYED Stop: 09/12/21 00:00 Last Admin: 08/13/21 13:12 Dose: Not Given Documented by: Naloxone HCl (Naloxone Hcl 0.4 Mg/1 Ml Vial/Carp) 0.1 mg IV Q5M PRN PRN Reason: Oversedation/respiratory dep Stop: 09/11/21 22:22 Naloxone HCl (Naloxone Hcl 0.4 Mg/1 Ml Vial/Carp) 0.1 mg IV Q5M PRN PRN Reason: Oversedation/Resp depression Stop: 09/12/21 12:46 Ondansetron HCl (Ondansetron Inj 2 Mg/Ml 2 Ml Vial) 4 mg IV Q6H PRN PRN Reason: Nausea &/or Vomiting Stop: 09/11/21 22:22 Ondansetron HCl (Ondansetron 4 Mg Od Tab) 4 mg PO Q6H PRN PRN Reason: Nausea Stop: 09/11/21 22:22 Ondansetron HCl (Ondansetron Inj 2 Mg/Ml 2 Ml Vial) 4 mg IV ONCE PRN PRN Reason: PACU Use Only-Nausea/Vomiting Stop: 08/13/21 18:19 Ondansetron HCl (Ondansetron Inj 2 Mg/Ml 2 Ml Vial) 4 mg IV Q6H PRN PRN Reason: Nausea &/or Vomiting Stop: 09/12/21 12:46 Ondansetron HCl (Ondansetron 4 Mg Od Tab) 4 mg PO Q6H PRN PRN Reason: Nausea Stop: 09/12/21 12:46 Oxycodone HCl (Oxycodone Hcl Ir 5 Mg Tab (Immediate Release)) 5 - 10 mg PO Q4H PRN PRN Reason: mod to severe pain Stop: 08/26/21 22:22 Last Admin: 08/13/21 05:46 Dose: 10 mg Documented by: Pneumococcal Polyvalent Vaccine (Do Not Administer Pneumococcal Vaccine) 1 ea N/A PRN PRN PRN Reason: Notification Stop: 09/12/21 12:46 Polyethylene Glycol (Polyethylene (Miralax) 17 Gm Pack) 17 gm PO Q6 SYED Stop: 09/13/21 05:59 Senna/Docusate Sodium (Docusate Sodium/Senna 50/8.6mg Tab) 2 tab PO HS SYED Stop: 09/12/21 20:59 Sodium Biphosphate/Sodium Phosphate (Sod Phosphate/Sod Biphosphate Enema 132 Ml Btl) 132 ml IA ONE PRN PRN Reason: Constipation Stop: 09/12/21 12:46 Tramadol HCl (Tramadol Hcl 50 Mg Tablet) 50 - 100 mg PO Q4H PRN PRN Reason: Moderate-Severe pain & Pre PT Stop: 09/11/21 22:22
[2021-08-13] MEDS ORDERED: GABAPENTIN 100 MG CAP PO ONE (14:45)
[2021-08-13] MEDS ORDERED: COUGH DROP (SUGAR FREE) LOZ 24 LOZ/1 BOX BUCCAL PRN (15:37)
[2021-08-13] MEDS: HYDROmorphone INJ 1 MG/ML SYRINGE IV PRN ×2 (17:51→21:43)
[2021-08-13] MEDS: ceFAZolin 1000MG 1,000 MG/7.5 ML SYR IV SCH (17:51)
[2021-08-13] MEDS ORDERED: NICOTINE 21 MG/24 HR TDSY TD PRN (19:46)
[2021-08-13] MEDS ORDERED: DOCUSATE SODIUM/SENNA 50/8.6MG TAB PO SCH (21:00)
[2021-08-14] MEDS: HYDROmorphone INJ 1 MG/ML SYRINGE IV PRN ×2 (01:37→05:37)
[2021-08-14] MEDS: ceFAZolin 1000MG 1,000 MG/7.5 ML SYR IV SCH (01:38)
[2021-08-14] MEDS: oxyCODONE HCL IR 5 MG TAB (IMMEDIATE RELEASE) PO PRN ×3 (03:35→11:42)
[2021-08-14] MEDS: LEVOTHYROXINE SODIUM 50 MCG TABLET PO SCH (05:41)
[2021-08-14] MEDS: POLYETHYLENE (MIRALAX) 17 GM PACK PO SCH ×2 (05:42→12:04)
[2021-08-14] MEDS ORDERED: GABAPENTIN 100 MG CAP PO SCH ×2 (06:30→12:00)
[2021-08-14 06:36] LABS: Basophils # (auto) 0.02 K/uL (0-0.2); Basophils % (auto) 0.1 %; Eosinophils # (auto) 0.01 K/uL (0-0.5); Eosinophils % (auto) 0.1 %; Hematocrit (blood only) 37.7 % (37-47); Hemoglobin 12.3 g/dL (12.0-16.0); Immature Granulocytes # (auto) 0.03 K/uL (0.00-0.02); Immature Granulocytes % (auto) 0.2 %; Lymphocytes # (auto) 1.75 K/uL (1.2-3.4); Lymphocytes % (auto) 11.9 %; Mean Corpuscular Hemoglobin 30.8 pg (25-34); Mean Corpuscular Hgb Conc 32.6 g/dL (32-36); Mean Corpuscular Volume 94.5 fL (80-100); Mean Platelet Volume 8.7 fL (7.4-10.4); Monocytes # (auto) 0.97 K/uL (0.11-0.59); Monocytes % (auto) 6.6 %; Neutrophils # (auto) 11.89 K/uL (1.4-6.5); Neutrophils % (auto) 81.1 %; Platelet Count 276 K/uL (130-400); RDW Coefficient of Variation 13.3 % (11.5-14.5); RDW Standard Deviation 46.4 fL (36.4-46.3); Red Blood Count 3.99 M/uL (4.2-5.4); White Blood Count 14.67 K/uL (4.8-10.8)
[2021-08-14 07:08] LABS: BUN Creatinine Ratio 10.5 (10-20); Calcium 9.1 mg/dl (8.5-10.1); Creatinine Clr Calc Pharmacy 87.5 ml/min; Est GFR (African American) 121.9 ml/min; Est GFR (Non-African American) 105.2 ml/min; Potassium 4.1 mmol/L (3.5-5.1)
[2021-08-14] MEDS ORDERED: dexAMETHasone 6 MG in SYRINGE 0 ML IV SCH (09:00)
[2021-08-14 09:39] VITALS: TEMP 98.1
--- NOTE | 2021-08-14 09:51 | Discharge Summary ---
Date of Service August 14, 2021 Admission HPI Per Admitting Provider This is a 45-year-old female presents with severe neck and arm pain. Is been progressive over the past several weeks. She notes significant weakness with inability to undergo activities of daily living. She is found extensive course of nonoperative care left upper extremity is relatively asymptomatic. Principal Diagnosis Cervical disc condition with radiculopathy Discharge Data Allergies Allergy/AdvReac Type Severity Reaction Status Date / Time No Known Allergies Allergy Verified 07/05/21 14:17 Consultations 08/12/21 20:03 ED Decision to Admit Stat 08/12/21 22:23 Consult Internal Medicine Routine Procedures Performed Operation Date: 08/13/21 07:00 Actual Procedures p C5-C6 Anterior Cervical Discectomy Fusion, Spinal Cord Monitoring(Not Applicable) - Drew Gilbert DO Ordered Studies 08/13/21 [place] cervical 2-3V Routine Hospital Course (1) Cervical radiculopathy: Patient presents the emergency room with severe radiculopathy admitted to hospital and underwent anterior cervical discectomy and fusion the following day. She tolerates well was taken to the orthopedic floor. Postop day 1 she had no hoarseness swallowing without difficulty marked improvement of her r adiculopathy. Patient was subsequently discharged home. Discharge orders instructions were on the chart for further review. Total Time Total Time Spent Total Time Spent (In Minutes): 20 minutes Discharge Plan Discharge Items Patient Disposition: Home - Self-Care Reason For Visit: CERVICAL RADICULOPATHY Discharge Diagnosis: Cervical disc condition with radiculopathy Condition on Discharge: Good Activity: As commented below Non-emergency contact: Primary Care Provider Call non-emergency contact if: you have any medication questions Follow-up/Referrals: Alfonso Leary DO [Primary Care Provider] - Diet: Regular Addtl Attending Provider Instructions: ACTIVITY RECOMMENDATIONS: SELF CARE INSTRUCTIONS AFTER CERVICAL FUSIONS 1. No smoking. Smoking drastically decreases the chance of a solid fusion. 2. No bending, lifting more than 5 pounds, or twisting (roll like a log when turning in bed). 3. You may shower 3 days after surgery. Thoroughly dry wound. Do not soak in the tub. 4. Cervical collar: Must be worn at all times including sleeping. You may remove the brace only to bath, eat and if you are sitting in a recliner. 5. Please walk as much as you can for exercise. Gradually increase the distance that you walk as your endurance increases. SPECIAL CARE INSTRUCTIONS: VERY IMPORTANT TO READ AND REVIEW A. Do not take any anti-inflammatory medications (i.e. Indocin, Advil, Aspirin, Naprosyn, Aleve, Motrin, etc.) as these may inhibit the chance of a solid fusion. Tylenol is okay to take. B. Your surgical incision has been closed with a cosmetic suture under the skin that will dissolve in about 6 weeks. In 14 days, you can use a pair of clean scissors and cut the suture that is left outside of the skin at the ends of your incision. C. Complications are uncommon, but please contact us if you have any signs or symptoms of: 1. wound infection (fever higher than 102.5 degrees F, redness, separation of wound, drainage, or increasing pain from the incision) 2. blood clots in legs (pain, swelling, redness and warmth in legs) 3. urinary tract infection (fever higher than 102.5 degrees, burning upon urination or increased frequency of urination) 4. nerve problems (inability to walk on your toes or heels, numbness, loss of bowel or bladder control) 5. any other symptoms that concern you. D. Please call the office at if you have any concerns or question s about your operation or recovery. MANAGING PAIN AFTER SPINAL SURGERY 1. Narcotic medication is intended for short-term use and will be provided for surgical pain. Surgical pain usually lasts for a period of 4-6 weeks. Narcotic medication includes Percocet, Vicodin, Darvocet, Tylenol #3 or Lortab. 2. Longer-term pain is more appropriately treated with non-narcotic medication such as Tylenol ES. 3. Muscle spasm is not appropriately treated with narcotics. Muscle relaxers such as Soma, Flexeril or Skelaxin can be used along with Tylenol ES. 4. Remember that we all live with some "aches and pains". This is not unusual or uncommon after an injury or as we get older. 5. We will provide appropriate medication within the normal guidelines of their prescribed use. We will also be very cautious and aware of potential abuse and extended duration of patients' medication needs. 6. Please allow 2-3 days to process refills. Prescriptions will not be mailed but must be picked up at the office. FOLLOW UP VISIT: Keep your scheduled follow-up appointment. Any questions, please call the office at . Pending Studies at Discharge: No Stand-Alone Forms: My [facility], Smoking Cessation Medications and DC Order Prescriptions: New tramadol 50 mg tablet 50 mg PO Q6H PRN (Reason: pain, moderate) Qty: 20 RF: 0 oxycodone 5 mg tablet 5 mg PO Q6H PRN (Reason: pain, severe) Qty: 20 RF: 0 Continued levothyroxine [Synthroid] 50 mcg Tablet 50 mcg PO QAM RF: 0 gabapentin 100 mg Capsule 100 mg PO TID RF: 0 Excedrin Migraine 250-250-65 mg Tablet 1 tab PO Q6H PRN (Reason: Pain) RF: 0 hydrocodone-acetaminophen 5-325 mg tablet 1 tab PO QPM RF: 0 Discontinued ibuprofen 800 mg Tablet 800 mg PO Q8H PRN (Reason: Pain) RF: 0 Discharge Orders: Discharge Order (Routine); Ordered 08/14/21 Ordered By: Drew Gilbert Admission Data Admit Date/Time: 08/12/21 19:53 Attending Provider: Drew Gilbert Admit Provider: Drew Gilbert Primary Care Provider: Alfonso Leary Other Providers: Drew Gilbert ; Rossana Ortiz
[2021-08-14 10:26] VITALS: PULSE 77; O2SAT 93
[2021-08-14 11:02] VITALS: BP 99/65
[2021-08-14] MEDS ORDERED: bisacodyL 10 MG SUPP PR PRN (19:51)
--- NOTE | 2021-08-14 21:02 | Communication Note ---
Date of Service: August 14, 2021 Pt had already left for home at the time I visited room for exam.
== END 2021-08-14 13:14 | disposition home or self-care (01) ==
LOC: ED 16:23 → 3E 19:53 → INTOOBSV 19:53 → 3E 22:00